=== PATIENT | male | born 1985 | race African-American/Black ===

== ENCOUNTER 2020-07-16 10:29 | Emergency (ER) | payer MEDICAID, OTHER ==
[~2020-07-16] VITALS: Ht 167.6 cm; Wt 73.0 kg
[2020-07-16 10:33] VITALS: BP 133/65
[2020-07-16] MEDS ORDERED: LIDOCAINE HCL/PF 1% 10 MG/ML 5ML VIAL IJ ONE (11:00)
[2020-07-16] MEDS ORDERED: TETANUS, DIPHTHERIA, PERTUSSIS VAC/PF 0.5ML (>7YR OLD) IM ONE (11:30)
== END 2020-07-16 11:41 | disposition home or self-care (01) ==
LOC: ER 10:29
DX: S01.511A Laceration without foreign body of lip, initial encounter (principal); W20.8XXA Other cause of strike by thrown, projected or falling object, initial encounter; Y93.89 Activity, other specified; Y92.89 Other specified places as the place of occurrence of the external cause
CPT/HCPCS: 12013; 90471; 99283